=== PATIENT | female | born 1980 | race Caucasian/White ===

== ENCOUNTER 2018-08-23 18:17 | Emergency (ER) | payer OTHER ==
[~2018-08-23] VITALS: Ht 165.1 cm; Wt 90.7 kg
== END 2018-08-23 20:10 | disposition left against medical advice (07) ==
LOC: ED 18:17
DX: H53.8 Other visual disturbances (principal); T78.1XXA Other adverse food reactions, not elsewhere classified, initial encounter; R06.02 Shortness of breath; Z91.018 Allergy to other foods; Z91.040 Latex allergy status; Z91.013 Allergy to seafood; Z88.8 Allergy status to other drugs, medicaments and biological substances; Y92.89 Other specified places as the place of occurrence of the external cause